=== PATIENT | female | born 1950 ===

== ENCOUNTER 2022-02-20 06:20 | Inpatient (IN) ==
[2022-02-19 11:52] LABS: Basophils # 0.1 10*3/uL (0.0-0.2); Basophils % 0.7 % (0.0-0.8); Eosinophils # 0.1 10*3/uL (0.0-0.87); Hematocrit 39.3 VOL% (35.7-47.0); Hemoglobin 12.6 GM/DL (12.0-16.0); Immature Granulocytes % 0.7 %; Immature Granulocytes Absolute 0.05 #; Lymphocytes # 1.1 10*3/uL (1.4-4.0); Lymphocytes % 16.4 % (21.3-54.2); Mean Corpuscular HGB Conc 32.1 GM/DL (32-36); Mean Corpuscular Volume 95.6 FL (87-102); Mean Platelet Volume 9.2 FL (9.6-12.0); Monocytes % 7.4 % (1.7-12.7); Neutrophils % 72.8 % (38.7-73.9); Platelet Count 346 T/CUMM (130-400); Red Blood Count 4.11 MC/CUMM (3.8-5.5); Red Cell Distribution Width 13.2 % (9.3-17.3); White Blood Count 6.9 T/CUMM (4-12)
[2022-02-19 12:17] LABS: Calcium 9.1 MG/DL (8.5-10.1); Osmolality,Calculated 285.5 MOS/KG (273-304); Potassium 4.8 MMOL/L (3.5-5.1)
[2022-02-20] MEDS ORDERED: TISSUE ADHESIVE 1 EACH APPLICATOR TOP ONE (06:22)
[2022-02-20] MEDS ORDERED: ERTAPENEM 1,000 MG in SODIUM CHLORIDE 0.9% 100 ML IV ONE (06:30)
[2022-02-20] MEDS ORDERED: fentaNYL 100 MCG/2 ML VIAL ONE ×2 (06:42→08:44)
[2022-02-20] MEDS ORDERED: DEXAMETHASONE 4 MG/1 ML VIAL ONE (06:42)
[2022-02-20] MEDS ORDERED: LIDOCAINE 2% 5 ML VIAL ONE (06:42)
[2022-02-20] MEDS ORDERED: MIDAZOLAM 2 MG/2 ML VIAL ONE (06:42)
[2022-02-20] MEDS ORDERED: ROCURONIUM 50 MG/5 ML VIAL IV ONE (06:42)
[2022-02-20] MEDS ORDERED: propofoL 200 MG/20 ML VIAL IV ONE (06:42)
[2022-02-20] MEDS ORDERED: BUPIVACAINE MPF 0.5% 30 ML VIAL ONE (06:44)
[2022-02-20] MEDS: LACTATED RINGERS 1,000 ML IV SCH ×3 (06:52→21:06)
[2022-02-20] MEDS ORDERED: GLYCOPYRROLATE 0.4 MG/2 ML VIAL ONE ×2 (08:44→09:47)
[2022-02-20] MEDS ORDERED: PHENYLEPHRINE 1 MG/10 ML SYRINGE IV ONE (08:44)
[2022-02-20] MEDS ORDERED: NEOSTIGMINE 10 MG/10 ML VIAL ONE (09:47)
[2022-02-20] MEDS ORDERED: ONDANSETRON 4 MG/2 ML VIAL ONE (09:49)
[2022-02-20] MEDS ORDERED: LACTATED RINGERS 1,000 ML IV ONE (10:08)
[2022-02-20] MEDS ORDERED: SEVOFLURANE 1 UNIT/15 MINUTE INH ONE (10:08)
[2022-02-20] MEDS ORDERED: HYDROmorphone 1 MG/1 ML SYRINGE IV PRN (10:17)
[2022-02-20 10:38] LABS: Basophils % 0.3 % (0.0-0.8); Eosinophils % 0.3 % (0.00-10.9); Hematocrit 37.8 VOL% (35.7-47.0); Hemoglobin 12.1 GM/DL (12.0-16.0); Immature Granulocytes % 0.5 %; Immature Granulocytes Absolute 0.05 #; Lymphocytes # 1.3 10*3/uL (1.4-4.0); Lymphocytes % 12.6 % (21.3-54.2); Mean Corpuscular Volume 95.2 FL (87-102); Mean Platelet Volume 8.9 FL (9.6-12.0); Monocytes % 3.6 % (1.7-12.7); Neutrophils % 82.7 % (38.7-73.9); Platelet Count 309 T/CUMM (130-400); Red Blood Count 3.97 MC/CUMM (3.8-5.5); Red Cell Distribution Width 13.3 % (9.3-17.3); White Blood Count 10.1 T/CUMM (4-12)
[2022-02-20 12:25] LABS: Calcium 8.4 MG/DL (8.5-10.1); Osmolality,Calculated 281.7 MOS/KG (273-304); Potassium 4.5 MMOL/L (3.5-5.1)
[2022-02-20] MEDS: KETOROLAC 15 MG/1 ML VIAL IV SCH ×3 (12:33→23:34)
[2022-02-20] MEDS ORDERED: ONDANSETRON 4 MG/2 ML VIAL IV PRN (15:58)
[2022-02-20] MEDS: PIPERACILLIN/TAZOBACTAM 3,375 MG in SODIUM CHLORIDE 0.9% 100 ML IV SCH ×2 (17:34→23:34)
[2022-02-20] MEDS: ALVIMOPAN 12 MG CAPSULE PO SCH (21:00)
[2022-02-21] MEDS: ENOXAPARIN 40 MG/0.4 ML SYRINGE SUBCUT SCH (05:13)
[2022-02-21] MEDS: KETOROLAC 15 MG/1 ML VIAL IV SCH ×4 (05:14→23:16)
[2022-02-21 05:22] LABS: Basophils % 0.2 % (0.0-0.8); Hematocrit 36.5 VOL% (35.7-47.0); Hemoglobin 11.5 GM/DL (12.0-16.0); Immature Granulocytes % 0.6 %; Immature Granulocytes Absolute 0.07 #; Lymphocytes % 7.7 % (21.3-54.2); Mean Corpuscular HGB Conc 31.5 GM/DL (32-36); Mean Corpuscular Volume 96.6 FL (87-102); Mean Platelet Volume 9.2 FL (9.6-12.0); Monocytes % 4.1 % (1.7-12.7); Neutrophils % 87.4 % (38.7-73.9); Platelet Count 280 T/CUMM (130-400); Red Blood Count 3.78 MC/CUMM (3.8-5.5); Red Cell Distribution Width 13.6 % (9.3-17.3); White Blood Count 12.5 T/CUMM (4-12)
[2022-02-21 05:34] LABS: Calcium 8.2 MG/DL (8.5-10.1); Osmolality,Calculated 280.8 MOS/KG (273-304); Potassium 4.1 MMOL/L (3.5-5.1)
[2022-02-21 05:54] LABS: Eosinophils 1 % (0-10); Hypochromia Slight; Lymphocytes 5 % (20-55); Microcytosis Slight; Platelet Estimate Adequate; Segmented Neutrophils 92 % (50-85); Total Cells Counted 100
[2022-02-21] MEDS: PIPERACILLIN/TAZOBACTAM 3,375 MG in SODIUM CHLORIDE 0.9% 100 ML IV SCH ×2 (09:04→16:44)
[2022-02-21] MEDS: LACTATED RINGERS 1,000 ML IV SCH ×3 (09:04→21:32)
[2022-02-21] MEDS: ALVIMOPAN 12 MG CAPSULE PO SCH ×2 (09:04→21:32)
[2022-02-21] MEDS: CALCIUM (CARBONATE) 500 MG TABLET PO SCH (16:44)
[2022-02-21] MEDS ORDERED: METOPROLOL SUCCINATE XL 50 MG TABLET PO SCH (21:00)
[2022-02-22] MEDS: PIPERACILLIN/TAZOBACTAM 3,375 MG in SODIUM CHLORIDE 0.9% 100 ML IV SCH ×2 (01:08→09:04)
[2022-02-22] MEDS: ENOXAPARIN 40 MG/0.4 ML SYRINGE SUBCUT SCH (06:04)
[2022-02-22] MEDS: KETOROLAC 15 MG/1 ML VIAL IV SCH ×2 (06:07→12:44)
[2022-02-22] MEDS: LACTATED RINGERS 1,000 ML IV SCH ×2 (07:32)
[2022-02-22 07:58] LABS: Basophils % 0.2 % (0.0-0.8); Eosinophils % 0.2 % (0.00-10.9); Hematocrit 31.8 VOL% (35.7-47.0); Hemoglobin 10.2 GM/DL (12.0-16.0); Immature Granulocytes % 0.6 %; Immature Granulocytes Absolute 0.07 #; Lymphocytes # 0.8 10*3/uL (1.4-4.0); Lymphocytes % 6.4 % (21.3-54.2); Mean Corpuscular HGB Conc 32.1 GM/DL (32-36); Mean Corpuscular Volume 95.8 FL (87-102); Mean Platelet Volume 8.9 FL (9.6-12.0); Monocytes % 3.6 % (1.7-12.7); Platelet Count 239 T/CUMM (130-400); Red Blood Count 3.32 MC/CUMM (3.8-5.5); Red Cell Distribution Width 13.4 % (9.3-17.3)
[2022-02-22] MEDS ORDERED: GLIMEPIRIDE 2 MG TABLET PO SCH (08:00)
[2022-02-22 08:17] LABS: Calcium 8.5 MG/DL (8.5-10.1); Osmolality,Calculated 281.5 MOS/KG (273-304); Potassium 3.6 MMOL/L (3.5-5.1)
[2022-02-22] MEDS ORDERED: lisinopriL 10 MG TABLET PO SCH (09:00)
[2022-02-22] MEDS ORDERED: PARoxetine 20 MG TABLET PO SCH (09:00)
[2022-02-22] MEDS: CALCIUM (CARBONATE) 500 MG TABLET PO SCH (09:03)
[2022-02-22] MEDS: ALVIMOPAN 12 MG CAPSULE PO SCH (09:03)
[2022-02-22 11:12] VITALS: BP 130/58
== END 2022-02-22 16:30 | disposition home or self-care (01) | DRG 331 ==
LOC: N.OR 06:20 → N.SDSINP 06:22 → N.3E 09:37
PROVIDERS: ADMIT Student in an Organized Health Care Education/Training Program; ATTEND Student in an Organized Health Care Education/Training Program